=== PATIENT | male | born 2000 | race Two or more races ===

== ENCOUNTER 2022-05-26 05:15 | Emergency (ER) | payer MEDICAID, OTHER ==
[~2022-05-26] VITALS: Ht 170.2 cm; Wt 63.5 kg
[2022-05-26] MEDS ORDERED: KETOROLAC 30MG/ML VIAL IV STA (06:19)
[2022-05-26] MEDS ORDERED: FAMOTIDINE 20MG/2ML VIAL IV STA (06:19)
[2022-05-26] MEDS ORDERED: ONDANSETRON HCL 4MG/2ML INJ IV STA (06:19)
[2022-05-26] MEDS ORDERED: SODIUM CHLORIDE 0.9% 1,000 ML IV ONE (06:30)
[2022-05-26 07:50] LABS: BASOPHILS % 0.3 % (0.0-2.0); EOSINOPHILS % 0.3 % (0.0-5.0); HEMATOCRIT. 42.4 % (42.0-52.0); HEMOGLOBIN. 14.3 g/dL (14.0-18.0); LYMPHOCYTES % 13.4 % (20.0-50.0); MEAN CORPUSCULAR HEMOGLOBIN 30.7 pg (28.0-32.0); MEAN CORPUSCULAR VOLUME 91.1 fL (80.0-94.0); MEAN PLATELET VOLUME 7.7 fl (7.4-10.4); MONOCYTES % 4.7 % (2.0-8.0); NEUTROPHILS % 81.3 % (40.0-76.0); PLATELET 269 x1000/uL (130-400); RED BLOOD CELL COUNT 4.66 mill/uL (4.7-6.1); RED CELL DISTRIBUTION WIDTH 13.3 % (11.6-14.6)
[2022-05-26 07:57] LABS: CHLORIDE 105 mEq/L (98-107)
[2022-05-26 09:05] VITALS: BP 115/65
== END 2022-05-26 09:21 | disposition home or self-care (01) ==
LOC: ER 05:15
DX: R11.0 Nausea (principal); R10.9 Unspecified abdominal pain
CPT/HCPCS: 36415; 80053; 83690; 85025; 93005; 96374; 96375; 99284; J1885; J2405; J3490; J7030